=== PATIENT | female | born 1985 ===

== ENCOUNTER 2020-12-18 06:23 | Emergency (ER) | payer OTHER, BC ==
[~2020-12-18] VITALS: Ht 157.5 cm; Wt 61.2 kg
[2020-12-18] MEDS ORDERED: BIRTH CONTROL (06:41)
[2020-12-18] MEDS ORDERED: POLYTRIM EYE DR10 M1 LEFTEYE (07:17)
== END 2020-12-18 07:32 | disposition home or self-care (01) ==
LOC: ER 06:23
DX: S05.02XA Injury of conjunctiva and corneal abrasion without foreign body, left eye, initial encounter (principal); H40.052 Ocular hypertension, left eye; W22.8XXA Striking against or struck by other objects, initial encounter; Y99.0 Civilian activity done for income or pay
CPT/HCPCS: 99283; A9270

== ENCOUNTER → 2023-01-26 | Outpatient (CLI) | payer BC ==
[~2023-01-26] MED LIST: BIRTH CONTROL; POLYTRIM EYE DR10 M1 LEFTEYE
[2023-01-28 14:11] LABS: HPV 16 Negative (Negative); HPV 18 Negative (Negative); HPV OTHER HR TYPES Negative (Negative)
== END | disposition home or self-care (01) ==
LOC: LAB 16:15 → LAB SHORT 16:15
PROVIDERS: Registered Nurse Community Health
DX: Z12.4 Encounter for screening for malignant neoplasm of cervix (principal)
CPT/HCPCS: 87624; G0145